=== PATIENT | male | born 2000 | race African-American/Black ===

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

== ENCOUNTER 2021-02-24 19:49 | Emergency (ER) | payer OTHER ==
[~2021-02-24] VITALS: Ht 190.5 cm; Wt 83.9 kg
[~2021-02-24 19:49] MED LIST changes: +TRAMADOL 50 MG50 MG PO
[2021-02-24 21:48] VITALS: BP 113/70
--- NOTE | 2021-02-25 12:54 | EKG ---
[address] [place] [address] ELECTROCARDIOGRAM REPORT Name: HECTOR DE LA FUENTE Room #: DEP ELI Jc#: [id number] Admission: 02/24/21 Attend Phys: Discharge: 02/24/21 Date of : [birth year] Report #: [id number] [facility] ED Test Date: 2021-02-24 Test Time: 19:57:19 Pat Name: HECTOR DE LA FUENTE Department: Room: Gender: Cut Pressman: JARVIS : 2000 Requested By: Ester Rollins Order Number: [id number] MD: Obdulio Reynolds Measurements Intervals [place] Rate: 57 P: 18 VA: 192 QRS: 66 QRSD: 97 T: 23 QT: 383 QTc: 373 Interpretive Statements Sinus bradycardia RSR' in V1 or V2, right VCD No previous ECG available for comparison Electronically Signed On 02-25-2021 12:54:40 CDT by Obdulio Reynolds [email or web address] <ELECTRONICALLY SIGNED> By: Obdulio Reynolds MD, [facility] 02/25/21 1254 [id number] Obdulio Reynolds MD, FAC /EPI
== END 2021-02-24 21:49 | disposition home or self-care (01) ==
LOC: ER 19:49
DX: U07.1 COVID-19 (principal)